=== PATIENT | female | born 1970 | race Caucasian/White ===

== ENCOUNTER 2017-07-23 19:58 | Emergency (ER) | payer OTHER ==
[~2017-07-23] VITALS: Ht 165.1 cm; Wt 90.4 kg
[~2017-07-23 19:58] MED LIST: ATENOLOL25 MG PO; IBUPROFEN400 MG PO; METFORMIN HCL1000 MG PO; MEVACOR20 MG PO; ZES5 PO
[2017-07-23 21:31] LABS: BASOPHIL % 0.5 % (0-2); PLATELET COUNT 393 x10^3mcL (130-400)
[2017-07-23 21:35] LABS: CALCIUM 8.9 mg/dL (8.5-10.1); CARBON DIOXIDE 29.7 mmol/L (21-32); CHLORIDE SERUM 105 mmol/L (98-107); CREATININE SERUM 0.6 mg/dL (0.6-1.0); GFR1 > 60 mL/min; GLUCOSE SERUM 115 mg/dL (74-106); POTASSIUM SERUM 3.6 mmol/L (3.5-5.1); SODIUM SERUM 142 mmol/L (136-145)
[2017-07-23 21:37] LABS: RED CELL DISTRIBUTION WIDTH 15.1 % (11.5-14.5)
[2017-07-23 21:41] LABS: ALBUMIN 3.5 g/dL (3.4-5.0); ALKALINE PHOSPHATASE 118 U/L (46-116); ALT/SGPT 31 U/L (14-59); AMYLASE 30 U/L (25-115); AST/SGOT 23 U/L (15-37); BILIRUBIN TOTAL 0.3 mg/dL (0.20-1.00); LIPASE 109 IU/L (73-393); TOTAL PROTEIN, SERUM 7.6 g/dL (6.4-8.2)
[2017-07-23 22:51] VITALS: BP 109/77
== END 2017-07-23 22:51 | disposition home or self-care (01) ==
LOC: ED 19:58
PROVIDERS: Emergency Medicine
DX: R10.31 Right lower quadrant pain (principal); R10.2 Pelvic and perineal pain; E11.9 Type 2 diabetes mellitus without complications; I10 Essential (primary) hypertension; E03.9 Hypothyroidism, unspecified; Z88.0 Allergy status to penicillin
CPT/HCPCS: 36415; 83880; J1885

== ENCOUNTER 2019-04-05 11:31 | Emergency (ER) | payer MEDICAID ==
[~2019-04-05] VITALS: Ht 165.1 cm; Wt 90.7 kg
[2019-04-05 11:44] VITALS: Ht 165.1 cm; Wt 90.7 kg
[2019-04-05 12:38] VITALS: BP 142/71
== END 2019-04-05 12:38 | disposition home or self-care (01) ==
LOC: ED 11:31
DX: J42 Unspecified chronic bronchitis (principal); J20.9 Acute bronchitis, unspecified; I10 Essential (primary) hypertension; E11.9 Type 2 diabetes mellitus without complications; E03.9 Hypothyroidism, unspecified; Z88.0 Allergy status to penicillin